=== PATIENT | male | born 1970 | race Caucasian/White ===

== ENCOUNTER 2018-11-30 08:55 | Observation (INO) | payer MEDICAID ==
[~2018-11-30] VITALS: Ht 175.3 cm; Wt 82.9 kg
[~2018-11-30 08:55] MED LIST: AMOX500C2 PO; CLIN300C10 PO; IBUP800T48 PO
[2018-11-30] MEDS ORDERED: ASPI-535 PO (10:17)
--- NOTE | 2018-11-30 11:27 | ERD ---
ER Documentation Chief Complaint Chief Complaint CHEST PAIN, LEFT ARM NUMBNESS, ONSET THIS AM HPI 48-year old male presents the emergency department complaining of chest pain. Patient was in his usual state of health until this morning at which time he developed a nonspecific left-sided pleuritic and stabbing type chest pain that r adiated to his left arm. It was associated with a nonspecific sense of a left arm numbness. There is no focal weakness or difficulty speaking or headache associated with this but a tingling type sensation in the left arm. He continued to have symptoms like this all day and then came to the emergency department for evaluation. Currently describes only a nonspecific chest pain which is worse when he takes a deep breath but is still persistent in the left upper extremity. ROS All systems reviewed and are negative except as per history of present illness. Medications Home Meds Reported Medications Aspirin Ec (Aspir 81) 81 Mg Tablet.dr, 81 MG PO DAILY, #30 TAB 11/30/18 Discontinued Scripts Amoxicillin* (Amoxicillin*) 500 Mg Cap, 500 MG PO TID for 10 Days, CAP Prov:ANTIONE ANDERSON MD 08/28/15 Ibuprofen* (Motrin*) 800 Mg Tab, 800 MG PO Q6H PRN for PAIN AND OR ELEVATED TEMP, #30 TAB Prov:ANTIONE ANDERSON MD 08/28/15 Clindamycin Hcl* (Clindamycin Hcl*) 300 Mg Capsule, 300 MG PO TID for 10 Days, CAP Prov:ANTIONE ANDERSON MD 08/28/15 Allergies Allergies: Coded Allergies: No Known Allergy (Unverified , 11/30/18) PMhx/Soc History of Surgery: Yes ([facility];Exploratory Laparoscopy; [facility]) Anesthesia Reaction: No Hx Neurological Disorder: No Hx Respiratory Disorders: No Hx Cardiac Disorders: No Hx Psychiatric Problems: No Hx Miscellaneous Medical Probl: Yes (ABDOMINAL MASS) Hx Alcohol Use: Yes Hx Substance Use: No Hx Tobacco Use: No Smoking Status: Never smoker FmHx Noncontributory for chief complaint Physical Exam Vitals Vital Signs Date Temp Pulse Resp B/P (MAP) Pulse Ox O2 O2 Flow FiO2 Time Delivery Rate 11/30/18 60 18 126/95 98 Room Air 11:19 (105) 11/30/18 97.8 75 17 166/86 98 08:58 (112) Physical Exam GENERAL: The patient is well developed and appropriate for usual state of health in no apparent distress HEENT: Pupils equal, round, and reactive to light. EOMI. There is no scleral icterus. NECK: C-spine is soft and supple, there is no meningismus. There is no cervical lymphadenopathy. LUNGS: Clear to auscultation bilaterally. There are no rales, wheezes or rhonchi. HEART: Regular rate and rhythm, no murmurs, clicks, rubs or gallops. ABDOMEN: Soft, non-tender, non-distended. There are bowel sounds in all four quadrants. No rebound or guarding. EXTREMITIES: There is no peripheral cyanosis or edema. No focal swelling or erythema. NEURO: The patient moves all four extremities with 5/5 strength. Cranial nerves II - XII are intact. Normal gait. Alert and oriented. Patient has nonspecific paresthesias in the left upper extremity in the distal aspect from the elbow down. SKIN: There is no apparent rash or petechiae. HEME/LYMPHATIC: There is no evidence of excessive bruising or lymphedema. PSYCHIATRIC: The patient does not appear anxious or depressed. Result Diagram: 11/30/1830 11/30/18 0913 Results 24 hrs Laboratory Tests Test 11/30/18 09:13 11/30/18 09:30 Sodium Level 141 mmol/L Potassium Level 4.4 mmol/L Chloride Level 106 mmol/L Carbon Dioxide Level 27 mmol/L Anion Gap 8 Blood Urea Nitrogen 14 mg/dl Creatinine 0.90 mg/dl Est Glomerular Filtrat Rate mL/min > 60 mL/min Glucose Level 88 mg/dl Calcium Level 9.6 mg/dl Total Bilirubin 0.5 mg/dl Direct Bilirubin 0.00 mg/dl Indirect Bilirubin 0.5 mg/dl Aspartate Amino Transf (AST/SGOT) 50 IU/L Alanine Aminotransferase (ALT/SGPT) 62 IU/L Alkaline Phosphatase 85 IU/L Troponin I < 0.012 ng/ml Total Protein 8.5 g/dl Albumin 4.6 g/dl Globulin 3.90 g/dl Albumin/Globulin Ratio 1.17 Triglycerides Level 340 mg/dl Cholesterol Level 228 mg/dl LDL Cholesterol, Calculated 124 mg/dl HDL Cholesterol 36 mg/dl Cholesterol/HDL Ratio 6.3 RATIO White Blood Count 7.4 10^3/ul Red Blood Count 5.30 10^6/ul Hemoglobin 15.4 g/dl Hematocrit 44.7 % Mean Corpuscular Volume 84.3 fl Mean Corpuscular Hemoglobin 29.1 pg Mean Corpuscular Hemoglobin Concent 34.5 g/dl Red Cell Distribution Width 12.5 % Platelet Count 240 10^3/UL Mean Platelet Volume 10.1 fl Immature Granulocytes % 0.400 % Neutrophils % 56.7 % Lymphocytes % 29.8 % Monocytes % 7.7 % Eosinophils % 4.7 % Basophils % 0.7 % Nucleated Red Blood Cells % 0.0 /100WBC Immature Granulocytes # 0.030 10^3/ul Neutrophils # 4.2 10^3/ul Lymphocytes # 2.2 10^3/ul Monocytes # 0.6 10^3/ul Eosinophils # 0.4 10^3/ul Basophils # 0.1 10^3/ul Nucleated Red Blood Cells # 0.0 10^3/ul Current Medications Medications Dose Sig/Sloane Start Time Status Last (Trade) Ordered Route PRN Stop Time Admin Dose Reason Admin Aspirin 325 mg ONCE ONCE 11/30/18 11/30/18 (Aspirin) PO 11:30 11/30/18 11:15 11:31 Procedures/MDM Patient was taken to a room, seen and evaluated. Comfort measures were initiated. Diagnostic tests were ordered and reviewed. 3 LEAD RHYTHM STRIP: Normal sinus rhythm without ectopy EK lead EKG reviewed by myself: Normal Sinus Rhythm Normal Benezett and intervals No ST elevation, depression, or T wave inversion Impression: Normal EKG RADIOLOGY: Reviewed with the radiologist CONSULTATION: Hospitalist was notified for admission REEVALUATION: Diagnostic tests were appreciated and discussed with the family and patient. Patient remained neurologically nonfocal at this time. After discussion with the patient, decision was made to admit for observation for further cardiac evaluation. MEDICAL DECISION MAKIN-year-old male presents the emergency department chest pain and nonspecific left arm tingling. Patient's been evaluated for both cardiac and neurologic standpoint. From a cardiac standpoint, his EKG is reassu ring as is his troponin. Patient has only minimal risk factors at this time, but with his ongoing symptoms and based on conversations with the patient, I am more comfortable admitting for serial troponins. From a neurologic standpoint, his neurologic evaluation does not make sense for a stroke and he has no other neurologic symptoms with a negative CT scan. Patient will be admitted for further observation at this time. Departure Diagnosis: Primary Impression: Chest pain Condition: Kade GAVIRIACHARLES Nov 30, 2018 11:27
[2018-11-30] MEDS ORDERED: ASPIRIN 325 MG TAB PO ONE (11:30)
--- NOTE | 2018-11-30 11:58 | HP ---
Date/Time of Note Date/Time of Note DATE: 11/30/18 TIME: 11:58 Assessment/Plan VTE Prophylaxis Pharmacological prophylaxis: LMWH Assessment/Plan Hospital Course 48-year-old male with no significant comorbidities other than obesity who came to the emergency room with chief complaint of new onset left forearm numbness and weakness. The also had new onset of pleuritic chest pain. The patient will be admitted to inpatient setting for further treatment and evaluation. 1. New-onset the left forearm numbness with weakness. -Brain CT scan negative. -Will obtain a brain MRI to rule out any acute stroke. -Obtain neurology consult. -Start the patient on aspirin and statins.- 2. Chest pain. -Most probably atypical in origin provided the pleuritic nature. -However, will rule out any ACS with serial troponins and 2D echocardiogram. 3. Dyslipidemia. -Start the patient on statins. -Dietary consult. 4. Obesity. -Dietary consult. Plan: The patient will be admitted to inpatient telemetry floor. The patient will be started on a low-cholesterol diet. The patient will be started on DVT prophylaxis. The patient will remain a full code. Activities will be as tolerated. The rest of the patient's management will be based on the clinical course, inputs from consultants, and the results of diagnostic studies. The patient was seen in collaboration with Dr. Perkins. Result Diagram: 11/30/1830 11/30/18 0913 Results 24hrs Laboratory Tests Test 11/30/18 09:13 11/30/18 09:30 Sodium Level 141 Potassium Level 4.4 Chloride Level 106 Carbon Dioxide Level 27 Anion Gap 8 Blood Urea Nitrogen 14 Creatinine 0.90 Est Glomerular Filtrat Rate mL/min > 60 Glucose Level 88 Calcium Level 9.6 Total Bilirubin 0.5 Direct Bilirubin 0.00 Indirect Bilirubin 0.5 Aspartate Amino Transf (AST/SGOT) 50 H Alanine Aminotransferase (ALT/SGPT) 62 Alkaline Phosphatase 85 Troponin I < 0.012 Total Protein 8.5 H Albumin 4.6 Globulin 3.90 H Albumin/Globulin Ratio 1.17 Triglycerides Level 340 H Cholesterol Level 228 H LDL Cholesterol, Calculated 124 HDL Cholesterol 36 Cholesterol/HDL Ratio 6.3 White Blood Count 7.4 # Red Blood Count 5.30 Hemoglobin 15.4 Hematocrit 44.7 Mean Corpuscular Volume 84.3 Mean Corpuscular Hemoglobin 29.1 Mean Corpuscular Hemoglobin Concent 34.5 Red Cell Distribution Width 12.5 Platelet Count 240 Mean Platelet Volume 10.1 Immature Granulocytes % 0.400 Neutrophils % 56.7 Lymphocytes % 29.8 Monocytes % 7.7 Eosinophils % 4.7 Basophils % 0.7 Nucleated Red Blood Cells % 0.0 Immature Granulocytes # 0.030 Neutrophils # 4.2 Lymphocytes # 2.2 Monocytes # 0.6 Eosinophils # 0.4 Basophils # 0.1 Nucleated Red Blood Cells # 0.0 HPI/ROS Admit Date/Time Admit Date/Time Hx of Present Illness This is a 48-year-old male who denies any significant past medical history. The patient started having left forearm numbness since 6 AM on 11/30/2018. The patient also had pleuritic chest pain upon deep inspiration. The patient verbalized that all the symptoms are new in onset. The patient denied any nausea, vomiting, or diaphoresis. The patient denied any dizziness.or visual disturbances. Patient denied any ataxia. The patient denied any injury to the left upper extremity. In the emergency room, the patient's 12-lead EKG was showing normal sinus rhythm. The patient's fasting lipid panel was showing significant dyslipidemia with elevated triglycerides and high total cholesterol. The patient was treated with a single dose of aspirin. The patient's brain CT scan was negative for any acute intracranial findings. ROS Constitutional: no complaints Eyes: no complaints ENT: no complaints Respiratory: no complaints Cardiovascular: chest pain, lightheadedness Gastrointestinal: no complaints Genitourinary: no complaints Musculoskeletal: no complaints Skin: erythema Neurologic: focal-weakness (LUE), other (Sensory loss in the left forearm.) Endocrine: no complaints Lymphatic: no complaints Psychological: anxiety Immunologic: no complaints PMH/Family/Social Past Medical History Medical History: no pertinent history Coded Allergies: No Known Allergy (Unverified , 11/30/18) Past Surgical History Past Surgical Hx: appendectomy Family History Significant Family History: no pertinent family hx Social History Lives at home with family. Works at [employer]. Alcohol Use: none Smoking Status: Never smoker Drug Use: none Exam/Review of Systems Vital Signs Vitals Vital Signs Date Temp Pulse Resp B/P (MAP) Pulse Ox O2 O2 Flow FiO2 Time Delivery Rate 11/30/18 60 18 126/95 98 Room Air 11:19 (105) 11/30/18 97.8 08:58 Exam Exam General: Adequately build 48 year-old male lying in bed in no apparent distress. HEENT: Normocephalic, atraumatic. Eyes: Anicteric sclerae, conjunctivae clear. ENT: Nasal septum midline, oral mucosa moist. Neck supple, no JVD noticed. Respiratory: Bilaterally clear breath sounds. No use of accessory muscles of respiration. No adventitious breath sounds. Cardiovascular: S1, S2 heard. Regular rate and rhythm. Abdomen: Soft, nontender, and nondistended. Bowel sounds positive in all 4 quadrants. Genitourinary: Deferred. Extremities: No cyanosis, no clubbing, no edema. Peripheral pulses palpable. Neurologic: The patient is awake, alert, and oriented. Left upper extremity weaker than the right upper extremity. Unable to feel soft touch on the left forearm. Skin: Normal skin turgor. Erythematous rashes on the face. Additional Comments Brain CT IMPRESSION: No acute intracranial pathology identified. CXR IMPRESSION: Unremarkable chest x-ray. 12-Lead EKG Normal sinus rhythm. MERVIN GALLEGOS NP Nov 30, 2018 11:58
[2018-11-30] MEDS ORDERED: ONDANSETRON 4 MG INJ IV PRN (13:00)
[2018-11-30] MEDS ORDERED: NACL 0.9% 3 ML SYG IV SCH (13:00)
[2018-11-30] MEDS ORDERED: ACETAMINOPHEN 325 MG TAB PO PRN (13:00)
[2018-11-30 17:09] VITALS: PULSE 66
[2018-11-30 17:10] VITALS: Ht 175.3 cm; Wt 82.9 kg
[2018-11-30 17:12] VITALS: BP 142/82; PULSE 59; RESP 18
[2018-11-30 20:00] VITALS: PULSE 71
[2018-11-30 20:17] VITALS: BP 126/76; PULSE 69; RESP 20
[2018-11-30] MEDS: ATORVASTATIN 40 MG TAB PO SCH (20:34)
[2018-12-01] VITALS (13 sets, daily range): BP systolic 114–133; BP diastolic 71–83; PULSE 58–83; RESP 16–20
[2018-12-01] MEDS: ASPIRIN (EC) 81 MG TAB PO SCH (08:02)
[2018-12-01] MEDS: ENOXAPARIN 40 MG/0.4 ML SYG SC SCH (08:06)
--- NOTE | 2018-12-01 13:34 | CONS ---
Assessment/Plan Assessment/Plan Hospital Course 48 M c/ Hx of HLD, and other comorbidities, who presents for evaluation of left arm weakness and numbness in the context of chest pain....for which neurology is consulted.. MRI brain is reassuringly without obvious acute intracranial pathology... Cervical spine pathology is, though, not yet excluded.. Complicated migraine is a Dx of exclusion... P: MRI C spine for further characterization NSAID prn headache PT/OT as necessary Continued medical management and supportive care per primary Will follow Consultation Date/Type/Reason Admit Date/Time Type of Consult Neurology Reason for Consultation L forearm numbness Requesting Provider: MERVIN GALLEGOS NP Date/Time of Note DATE: 12/01/18 TIME: 13:34 Hx of Present Illness 48 yo M with no significant PMH who presented to the ED for evaluation of L forearm numbness and chest pain. History was obtained from pt and chart review. The pt also endorsed headache and L arm weakness at the time. Denied dizziness, lethargy, confusion, vision or speech disturbances, gait instability. The pt also endorses a hx of headaches for which he takes motrin with pain relief. It is elsewhere noted: Hx of Present Illness This is a 48-year-old male who denies any significant past medical history. The patient started having left forearm numbness since 6 AM on 11/30/2018. The patient also had pleuritic chest pain upon deep inspiration. The patient verbalized that all the symptoms are new in onset. The patient denied any nausea, vomiting, or diaphoresis. The patient denied any dizziness.or visual disturbances. Patient denied any ataxia. The patient denied any injury to the left upper extremity. In the emergency room, the patient's 12-lead EKG was showing normal sinus rhythm. The patient's fasting lipid panel was showing significant dyslipidemia with elevated triglycerides and high total cholesterol. The patient was treated with a single dose of aspirin. The patient's brain CT scan was negative for any acute intracranial findings. negative unless noted otherwise in HPI Exam/Review of Systems Exam Vitals Vital Signs Date Temp Pulse Resp B/P (MAP) Pulse Ox O2 O2 Flow FiO2 Time Delivery Rate 12/01/18 98.7 74 18 126/79 98 Room Air 11:59 (95) Intake and Output 11/30/18 11/30/18 12/01/18 1414:59 22:59 06:59 IntakeIntake Total 400 ml BalanceBalance 400 ml Exam PE: Gen Appearance: No Apparent Distress HEENT: Normocephalic Cardiovascular: Regular rate Lungs: Clear bilaterally Abdomen: Soft Extremities: Dry NE: The patient was alert and oriented. Language was normal. Fund of knowledge was normal. Pupils were equal and reactive to light. There was no afferent pupillary defect. Visual sosa were normal. Funduscopic examination was limited. Extra-ocular movements were full. Ptosis was absent. There was no nystagmus. Facial sensation was normal. Face was symmetric with normal strength. Hearing was intact. Palate movements were normal. Neck strength was normal. There was normal tongue bulk and speed of movement. Tone was normal. Muscle bulk was normal. I did not see fasciculations. Arms and legs were mildly weak on the L. Vibration sensation and sensation to light touch was diminished in the L hand. Temperature and pinprick sensation was normal. Rapid alternating movements were normal. There was no dysmetria. There was no intention tremor. Gait was deferred due to bedrest. Arm and leg reflexes were 2+ and symmetric. Portillo's sign was absent. Plantar responses were flexor. Results Result Diagram: 12/01/18 0329 12/01/18 0329 Results 24hrs Laboratory Tests Test 11/30/18 17:45 11/30/18 22:00 11/30/18 23:10 12/01/18 03:29 Creatine Kinase 77 84 81 Creatine Kinase Index 0.5 0.4 0.4 Creatinine Kinase MB 0.36 0.30 0.36 (Mass) Troponin I < 0.012 < 0.012 < 0.012 Urine Opiates Screen Negative Urine Barbiturates Negative Urine Amphetamines Negative Screen Urine Benzodiazepines Negative Screen Urine Cocaine Screen Negative Urine Cannabinoids Negative White Blood Count 7.1 Red Blood Count 5.11 Hemoglobin 15.2 Hematocrit 42.9 Mean Corpuscular Volume 84.0 Mean Corpuscular 29.7 Hemoglobin Mean Corpuscular 35.4 Hemoglobin Concent Red Cell Distribution 12.5 Width Platelet Count 239 Mean Platelet Volume 10.4 Immature Granulocytes % 0.600 H Neutrophils % 51.0 Lymphocytes % 34.3 Monocytes % 7.2 Eosinophils % 5.9 Basophils % 1.0 Nucleated Red Blood 0.0 Cells % Immature Granulocytes # 0.040 H Neutrophils # 3.6 Lymphocytes # 2.4 Monocytes # 0.5 Eosinophils # 0.4 Basophils # 0.1 Nucleated Red Blood 0.0 Cells # Sodium Level 139 Potassium Level 4.1 Chloride Level 105 Carbon Dioxide Level 26 Anion Gap 8 Blood Urea Nitrogen 16 Creatinine 0.76 Est Glomerular Filtrat > 60 Rate mL/min Glucose Level 88 Calcium Level 9.5 Phosphorus Level 4.9 Magnesium Level 2.1 Medications Medication Current Medications IV Flush (NS 3 ml) 3 ml PER PROTOCOL IV ; Start 11/30/18 at 13:00 Ondansetron HCl (Zofran Inj) 4 mg Q6H PRN IV NAUSEA/VOMITING; Start 11/30/18 at 13:00 Acetaminophen (Tylenol Tab) 650 mg Q6H PRN PO .PAIN 1-3 OR TEMP Last administered on 11/30/18at 19:42; Admin Dose 650 MG; Start 11/30/18 at 13:00 Enoxaparin Sodium (Lovenox) 40 mg DAILY SC Last administered on 12/01/18at 08:06; Admin Dose 40 MG; Start 12/01/18 at 09:00 Aspirin (Halfprin) 81 mg DAILY PO Last administered on 12/01/18at 08:02; Admin Dose 81 MG; Start 12/01/18 at 09:00 Atorvastatin Calcium (Lipitor) 40 mg HS PO Last administered on 11/30/18at 20:34; Admin Dose 40 MG; Start 11/30/18 at 21:00 Past Medical History reviewed Medical History: no pertinent history Home Meds Reported Medications Aspirin Ec (Aspir 81) 81 Mg Tablet.dr, 81 MG PO DAILY, #30 TAB 11/30/18 Discontinued Scripts Amoxicillin* (Amoxicillin*) 500 Mg Cap, 500 MG PO TID for 10 Days, CAP Prov:ANTIONE ANDERSON MD 08/28/15 Ibuprofen* (Motrin*) 800 Mg Tab, 800 MG PO Q6H PRN for PAIN AND OR ELEVATED TEMP, #30 TAB Prov:ANTIONE ANDERSON MD 08/28/15 Clindamycin Hcl* (Clindamycin Hcl*) 300 Mg Capsule, 300 MG PO TID for 10 Days, CAP Prov:ANTIONE ANDERSON MD 08/28/15 Medications Current Medications IV Flush (NS 3 ml) 3 ml PER PROTOCOL IV ; Start 11/30/18 at 13:00 Ondansetron HCl (Zofran Inj) 4 mg Q6H PRN IV NAUSEA/VOMITING; Start 11/30/18 at 13:00 Acetaminophen (Tylenol Tab) 650 mg Q6H PRN PO .PAIN 1-3 OR TEMP Last administered on 11/30/18at 19:42; Admin Dose 650 MG; Start 11/30/18 at 13:00 Enoxaparin Sodium (Lovenox) 40 mg DAILY SC Last administered on 12/01/18at 08:06; Admin Dose 40 MG; Start 12/01/18 at 09:00 Aspirin (Halfprin) 81 mg DAILY PO Last administered on 12/01/18at 08:02; Admin Dose 81 MG; Start 12/01/18 at 09:00 Atorvastatin Calcium (Lipitor) 40 mg HS PO Last administered on 11/30/18at 20:34; Admin Dose 40 MG; Start 11/30/18 at 21:00 Allergies: Coded Allergies: No Known Allergy (Unverified , 11/30/18) Past Surgical History reviewed Past Surgical Hx: appendectomy Social History reviewed Alcohol Use: none Smoking Status: Never smoker Drug Use: none MIKAYLA MARTINEZ NP Dec 01, 2018 13:34 GWENDOLYN TODD Dec 01, 2018 15:36
--- NOTE | 2018-12-01 13:53 | PN ---
Date/Time of Note Date/Time of Note DATE: 12/01/18 TIME: 13:50 Assessment/Plan VTE Prophylaxis Risk score (from Nsg)>0 risk: 1 SCD applied (from Nsg): Yes Pharmacological prophylaxis: LMWH Lines/Catheters IV Catheter Type (from Nrsg): Peripheral IV Assessment/Plan Hospital Course SUBJECTIVE: Denies any chest pain. Left forearm numbness weakness now focalized to left combined left index finger. OBJECTIVE: Physical Exam General: Adequately build 48 year-old male lying in bed in no apparent distress. HEENT: Normocephalic, atraumatic. Eyes: Anicteric sclerae, conjunctivae clear. ENT: Nasal septum midline, oral mucosa moist. Neck supple, no JVD noticed. Respiratory: Bilaterally clear breath sounds. No use of accessory muscles of respiration. No adventitious breath sounds. Cardiovascular: S1, S2 heard. Regular rate and rhythm. Abdomen: Soft, nontender, and nondistended. Bowel sounds positive in all 4 quadrants. Genitourinary: Deferred. Extremities: No cyanosis, no clubbing, no edema. Peripheral pulses palpable. Neurologic: The patient is awake, alert, and oriented. Unable to feel soft touch on the left thumb and index finger. Skin: Normal skin turgor. Labs & Vitals per chart ASSESSMENT & PLAN 48-year-old male with no significant comorbidities other than obesity who came to the emergency room with chief complaint of new onset left forearm numbness and weakness. The also had new onset of pleuritic chest pain. The patient will be admitted to inpatient setting for further treatment and evaluation. 1. New-onset the left forearm numbness with weakness. -Brain CT scan negative. -Brain MRI negative for any stroke. -Obtain neurology consult. -Continue aspirin and statins. -Occupational Therapy consult. 2. Chest pain. -Most probably atypical in origin provided the pleuritic nature. -Serial troponins negative. 3. Dyslipidemia. -Continue the patient on statins. -Dietary consult. 4. Obesity. -Dietary consult. 5. Fluids, electrolytes, and nutrition. -Low-cholesterol diet. 6. Prophylaxis. -Subcutaneous Lovenox. 7. Plan. -Continue inpatient monitoring. -Await further neurology input. The patient was seen in collaboration with Dr. Perkins. Result Diagram: 12/01/18 0329 12/01/18 0329 Results 24hrs Laboratory Tests Test 11/30/18 17:45 11/30/18 22:00 11/30/18 23:10 12/01/18 03:29 Creatine Kinase 77 84 81 Creatine Kinase Index 0.5 0.4 0.4 Creatinine Kinase MB 0.36 0.30 0.36 (Mass) Troponin I < 0.012 < 0.012 < 0.012 Urine Opiates Screen Negative Urine Barbiturates Negative Urine Amphetamines Negative Screen Urine Benzodiazepines Negative Screen Urine Cocaine Screen Negative Urine Cannabinoids Negative White Blood Count 7.1 Red Blood Count 5.11 Hemoglobin 15.2 Hematocrit 42.9 Mean Corpuscular Volume 84.0 Mean Corpuscular 29.7 Hemoglobin Mean Corpuscular 35.4 Hemoglobin Concent Red Cell Distribution 12.5 Width Platelet Count 239 Mean Platelet Volume 10.4 Immature Granulocytes % 0.600 H Neutrophils % 51.0 Lymphocytes % 34.3 Monocytes % 7.2 Eosinophils % 5.9 Basophils % 1.0 Nucleated Red Blood 0.0 Cells % Immature Granulocytes # 0.040 H Neutrophils # 3.6 Lymphocytes # 2.4 Monocytes # 0.5 Eosinophils # 0.4 Basophils # 0.1 Nucleated Red Blood 0.0 Cells # Sodium Level 139 Potassium Level 4.1 Chloride Level 105 Carbon Dioxide Level 26 Anion Gap 8 Blood Urea Nitrogen 16 Creatinine 0.76 Est Glomerular Filtrat > 60 Rate mL/min Glucose Level 88 Calcium Level 9.5 Phosphorus Level 4.9 Magnesium Level 2.1 Exam/Review of Systems Exam Vitals Vital Signs Date Temp Pulse Resp B/P (MAP) Pulse Ox O2 O2 Flow FiO2 Time Delivery Rate 12/01/18 98.7 74 18 126/79 98 Room Air 11:59 (95) Intake and Output 11/30/18 11/30/18 12/01/18 1515:00 23:00 07:00 IntakeIntake Total 400 ml BalanceBalance 400 ml Results Results 24hrs Laboratory Tests Test 11/30/18 17:45 11/30/18 22:00 11/30/18 23:10 12/01/18 03:29 Creatine Kinase 77 84 81 Creatine Kinase Index 0.5 0.4 0.4 Creatinine Kinase MB 0.36 0.30 0.36 (Mass) Troponin I < 0.012 < 0.012 < 0.012 Urine Opiates Screen Negative Urine Barbiturates Negative Urine Amphetamines Negative Screen Urine Benzodiazepines Negative Screen Urine Cocaine Screen Negative Urine Cannabinoids Negative White Blood Count 7.1 Red Blood Count 5.11 Hemoglobin 15.2 Hematocrit 42.9 Mean Corpuscular Volume 84.0 Mean Corpuscular 29.7 Hemoglobin Mean Corpuscular 35.4 Hemoglobin Concent Red Cell Distribution 12.5 Width Platelet Count 239 Mean Platelet Volume 10.4 Immature Granulocytes % 0.600 H Neutrophils % 51.0 Lymphocytes % 34.3 Monocytes % 7.2 Eosinophils % 5.9 Basophils % 1.0 Nucleated Red Blood 0.0 Cells % Immature Granulocytes # 0.040 H Neutrophils # 3.6 Lymphocytes # 2.4 Monocytes # 0.5 Eosinophils # 0.4 Basophils # 0.1 Nucleated Red Blood 0.0 Cells # Sodium Level 139 Potassium Level 4.1 Chloride Level 105 Carbon Dioxide Level 26 Anion Gap 8 Blood Urea Nitrogen 16 Creatinine 0.76 Est Glomerular Filtrat > 60 Rate mL/min Glucose Level 88 Calcium Level 9.5 Phosphorus Level 4.9 Magnesium Level 2.1 Medications Medication Current Medications IV Flush (NS 3 ml) 3 ml PER PROTOCOL IV ; Start 11/30/18 at 13:00 Ondansetron HCl (Zofran Inj) 4 mg Q6H PRN IV NAUSEA/VOMITING; Start 11/30/18 at 13:00 Acetaminophen (Tylenol Tab) 650 mg Q6H PRN PO .PAIN 1-3 OR TEMP Last administe red on 11/30/18at 19:42; Admin Dose 650 MG; Start 11/30/18 at 13:00 Enoxaparin Sodium (Lovenox) 40 mg DAILY SC Last administered on 12/01/18 08:06; Admin Dose 40 MG; Start 12/01/18 at 09:00 Aspirin (Halfprin) 81 mg DAILY PO Last administered on 12/01/18 08:02; Admin Dose 81 MG; Start 12/01/18 at 09:00 Atorvastatin Calcium (Lipitor) 40 mg HS PO Last administered on 11/30/18 20:34; Admin Dose 40 MG; Start 11/30/18 at 21:00 MERVIN GALLEGOS NP Dec 01, 2018 13:53
--- NOTE | 2018-12-01 17:41 | RADRPT ---
Echocardiogram Report Patient Name: RUBEN RICHARDSONPatient ID: [id number] : 1970 (48y 8m)Study Date: 12/01/2018 9:23:07 AM Gender: Leah #: [id number] Tech: Tima Comer [facility] Location: 6[address] Ref.Physician: MERVIN GALLEGOS Height(Cm): BSA: Weight(Kg): Quality: AdequateAccount #: Procedures: Echocardiographic Report: Transthoracic echocardiogram with complete 2D, M-Mode, and doppler examination. Indications: Chest Pain. Measurements: 2D/M Mode Doppler Measurement Value Normal Range Measurement Value Normal Range LVIDd 2D 4.4 [ 4.2 - 5.8 ] cm AV Peak Nehemias 1.3 [ 100.0 - 170.0 ] cm/sec LVIDs 2D 3.0 [ 2.5 - 4.0 ] cm AV Peak PG 7.0 [ 2.0 - 9.0 ] mmHg LVPWd 2D 1.1 [ 0.6 - 1.0 ] cm LVOT Peak Nehemias 1.1 [ 70.0 - 110.0 ] cm/sec IVSd 2D 1.3 [ 0.6 - 1.0 ] cm LVOT Peak PG 5.0 [ 2.0 - 6.0 ] mmHg AoR Diam 2D 4.0 [ 2.6 - 3.4 ] cm MV E Peak Nehemias 0.7 [ 60.0 - 130.0 ] cm/sec EDV 2D 86.3 [ 62.0 - 150.0 ] ml MV A Peak Nehemias 0.8 [ 100.0 - 120.0 ] cm/sec ESV 2D 36.2 [ 21.0 - 61.0 ] ml MV E/A 0.9 [ 0.8 - 1.5 ] ratio EF 2D 58.1 [ 52.0 - 72.0 ] percent MV Decel Time 264 [ 104 - 258 ] msec LA Dimen 2D 3.1 [ 3.0 - 4.0 ] cm Lat E` Nehemias 0.1 [ 10.0 - 15.0 ] cm/sec Lateral E/E` 6.8 [ 1.0 - 2.0 ] ratio Med E` Nehemias 0.1 cm/sec MV E/A 0.9 [ 0.8 - 1.5 ] ratio TR Peak Nehemias 2.3 [ 100.0 - 280.0 ] cm/sec TR Peak PG 22.0 mmHg RVSP 25.0 [ 10.0 - 36.0 ] mmHg Findings: Left Ventricle: Normal left ventricular systolic function. Normal left ventricular cavity size. Sigmoid septum. Ejection fraction is visually estimated at 60 %. Tissue Doppler/Mitral Doppler indices are consistent with impaired relaxation (Stage I diastolic dysfunction). Right Ventricle: Normal right ventricular size. Normal right ventricular systolic function. Left Atrium: The left atrium is normal in size. Right Atrium: The right atrium is normal in size. Mitral Valve: Mild mitral leaflet calcification. Mild mitral annular calcification. Trace mitral regurgitation. Aortic Valve: No significant aortic stenosis or insufficiency. Aortic cusps appear mildly calcified. Mild aortic valve regurgitation. Tricuspid Valve: Normal appearance of the tricuspid valve. Estimated peak PA systolic pressure 25 mmHg. There is trace tricuspid regurgitation. Pericardium: Normal pericardium with no significant pericardial effusion. Aorta: Sinotubular junction is dilated. Sinotubular junction: 4.00 cm. IVC: Normal size and normal respiratory collapse consistent with normal right atrial pressure. Conclusions: Normal left ventricular systolic function. Normal left ventricular cavity size. Sigmoid septum. Ejection fraction is visually estimated at 60 %. Tissue Doppler/Mitral Doppler indices are consistent with impaired relaxation (Stage I diastolic dysfunction). Mild mitral leaflet calcification. Mild mitral annular calcification. Trace mitral regurgitation. No significant aortic stenosis or insufficiency. Aortic cusps appear mildly calcified. Mild aortic valve regurgitation. Normal appearance of the tricuspid valve. Estimated peak PA systolic pressure 25 mmHg. There is trace tricuspid regurgitation. Electronically Signed By: Oswaldo Donald 2018-12-01 17:41:30 [facility]
[2018-12-01] MEDS: ATORVASTATIN 40 MG TAB PO SCH (20:22)
[2018-12-02] VITALS (9 sets, daily range): BP systolic 107–122; BP diastolic 67–76; PULSE 62–102; RESP 16–20
[2018-12-02] MEDS: ASPIRIN (EC) 81 MG TAB PO SCH (07:42)
[2018-12-02] MEDS: ENOXAPARIN 40 MG/0.4 ML SYG SC SCH (07:46)
--- NOTE | 2018-12-02 13:48 | CONS ---
Assessment/Plan Assessment/Plan Hospital Course 48 M c/ Hx of HLD, and other comorbidities, who presents for evaluation of left arm weakness and numbness in the context of chest pain....for which neurology is consulted.. Perhaps a complicated migraine. MRI brain is reassuringly without obvious acute intracranial pathology... MRI C spine is reassuringly without acute pathology. P: NSAID prn headache PT/OT as necessary Continued medical management and supportive care per primary Will follow Consultation Date/Type/Reason Admit Date/Time Nov 30, 2018 at 11:24 Type of Consult Neurology Reason for Consultation L forearm numbness Requesting Provider: MERVIN GALLEGOS NP Date/Time of Note DATE: 12/02/18 TIME: 13:47 24 HR Interval Summary Free Text/Dictation Continues acute care. S/p MRI C spine. Pt states that his sx have almost entirely resolved. Exam Vital Signs Vitals Vital Signs Date Temp Pulse Resp B/P (MAP) Pulse Ox O2 O2 Flow FiO2 Time Delivery Rate 12/02/18 102 12:49 12/02/18 97.4 17 117/70 98 Room Air 11:20 (86) Intake and Output 12/01/18 12/01/18 12/02/18 1414:59 22:59 06:59 IntakeIntake Total 2280 ml 600 ml BalanceBalance 2280 ml 600 ml Exam PE: Gen Appearance: No Apparent Distress HEENT: Normocephalic Cardiovascular: Regular rate Lungs: Clear bilaterally Abdomen: Soft Extremities: Dry NE: The patient was alert and oriented. Language was normal. Fund of knowledge was normal. Pupils were equal and reactive to light. There was no afferent pupillary defect. Visual sosa were normal. Funduscopic examination was limited. Extra-ocular movements were full. Ptosis was absent. There was no nystagmus. Facial sensation was normal. Face was symmetric with normal strength. Hearing was intact. Palate movements were normal. Neck strength was normal. There was normal tongue bulk and speed of movement. Tone was normal. Muscle bulk was normal. I did not see fasciculations. Arms and legs were mildly weak on the L. Vibration sensation and sensation to light touch was diminished in the L hand. Temperature and pinprick sensation was normal. Rapid alternating movements were normal. There was no dysmetria. There was no intention tremor. Gait was deferred due to bedrest. Arm and leg reflexes were 2+ and symmetric. Portillo's sign was absent. Plantar responses were flexor. MIKAYLA MARTINEZ NP Dec 02, 2018 13:48 GWENDOLYN TODD Dec 02, 2018 15:20
[2018-12-02] MEDS ORDERED: ATOR40TA68 PO (14:30)
--- NOTE | 2018-12-02 14:57 | PDOCDIS ---
Discharge Instructions CONDITION [id number] Patient Condition: [id number] Stable HOME CARE INSTRUCTIONS: [id number] Diet Instructions: [id number] Low Fat /Cholesterol OTHER ORDERS: Other Orders: 1. Take a low cholesterol diet. 2. Continue aspirin. Start taking Lipitor. 3. Resume activities as tolerated. 4. Please follow-up with your primary care physician in 2 weeks. 5. Please go to the nearest emergency room if you have any sudden onset of focal weakness, speech disturbances, chest pain, or any other unusual signs/symptoms. MERVIN GALLEGOS NP Dec 02, 2018 14:54
[2018-12-02] MEDS ORDERED: Work Note (15:08)
--- NOTE | 2018-12-02 16:45 | DS ---
Date/Time of Note Date/Time of Note DATE: 12/02/18 TIME: 16:45 Discharge Summary Admission/Discharge Info Admit Date/Time Nov 30, 2018 at 11:24 Discharge Date/Time Hx of Present Illness This is a 48-year-old male who denies any significant past medical history. The patient started having left forearm numbness since 6 AM on 11/30/2018. The patient also had pleuritic chest pain upon deep inspiration. The patient verbalized that all the symptoms are new in onset. The patient denied any nausea, vomiting, or diaphoresis. The patient denied any dizziness.or visual disturbances. Patient denied any ataxia. The patient denied any injury to the left upper extremity. In the emergency room, the patient's 12-lead EKG was showing normal sinus rhythm. The patient's fasting lipid panel was showing significant dyslipidemia with elevated triglycerides and high total cholesterol. The patient was treated with a single dose of aspirin. The patient's brain CT scan was negative for any acute intracranial findings. Hospital Course SUBJECTIVE: Denies any chest pain. Left forearm numbness weakness now focalized to left combined left index finger. OBJECTIVE: Physical Exam General: Adequately build 48 year-old male lying in bed in no apparent distress. HEENT: Normocephalic, atraumatic. Eyes: Anicteric sclerae, conjunctivae clear. ENT: Nasal septum midline, oral mucosa moist. Neck supple, no JVD noticed. Respiratory: Bilaterally clear breath sounds. No use of accessory muscles of respiration. No adventitious breath sounds. Cardiovascular: S1, S2 heard. Regular rate and rhythm. Abdomen: Soft, nontender, and nondistended. Bowel sounds positive in all 4 quadrants. Genitourinary: Deferred. Extremities: No cyanosis, no clubbing, no edema. Peripheral pulses palpable. Neurologic: The patient is awake, alert, and oriented. Unable to feel soft touch on the left thumb and index finger. Skin: Normal skin turgor. Labs & Vitals per chart ASSESSMENT & PLAN 48-year-old male with no significant comorbidities other than obesity who came to the emergency room with chief complaint of new onset left forearm numbness and weakness. The also had new onset of pleuritic chest pain. The patient will be admitted to inpatient setting for further treatment and evaluation. 1. New-onset the left forearm numbness with weakness. -Brain CT scan negative. -Brain MRI negative for any stroke. -Obtain neurology consult. -Continue aspirin and statins. -Occupational Therapy consult. 2. Chest pain. -Most probably atypical in origin provided the pleuritic nature. -Serial troponins negative. 3. Dyslipidemia. -Continue the patient on statins. -Dietary consult. 4. Obesity. -Dietary consult. 5. Fluids, electrolytes, and nutrition. -Low-cholesterol diet. 6. Prophylaxis. -Subcutaneous Lovenox. 7. Plan. -Continue inpatient monitoring. -Await further neurology input. The patient was seen in collaboration with Dr. Perkins. [place] Meds Active Scripts [Work Note] No Conflict Check This is to certify that the patient was admitted to [facility] from 11/30/18 to 12/02/18. He can return back to work on 12/05/2018 with no restrictions. Prov:MERVIN GALLEGOS NP 12/02/18 Atorvastatin* (Atorvastatin*) 40 Mg Tablet, 40 MG PO HS, #30 TAB Prov:MERVIN GALLEGOS NP 12/02/18 Reported Medications Aspirin Ec (Aspir 81) 81 Mg Tablet.dr, 81 MG PO DAILY, #30 TAB 11/30/18 Discontinued Scripts Amoxicillin* (Amoxicillin*) 500 Mg Cap, 500 MG PO TID for 10 Days, CAP Prov:ANTIONE ANDERSON MD 08/28/15 Ibuprofen* (Motrin*) 800 Mg Tab, 800 MG PO Q6H PRN for PAIN AND OR ELEVATED TEMP, #30 TAB Prov:ANTIONE ANDERSON MD 08/28/15 Clindamycin Hcl* (Clindamycin Hcl*) 300 Mg Capsule, 300 MG PO TID for 10 Days, CAP Prov:ANTIONE ANDERSON MD 08/28/15 Primary Care Provider [facility] MERVIN GALLEGOS NP Dec 02, 2018 16:45
--- NOTE | 2018-12-02 17:43 | DS ---
Date/Time of Note Date/Time of Note DATE: 12/02/18 TIME: 17:39 Discharge Summary Admission/Discharge Info Admit Date/Time Nov 30, 2018 at 11:24 Discharge Date/Time Discharge Diagnosis 1. Reversible left forearm numbness with weakness. ? Migraine hemiplegia. 2. Atypical chest pain. 3. Dyslipidemia. 4. Obesity. Patient Condition: Stable Consults 1. Dona Plasencia MD, Neurology. Procedures Brain MRI IMPRESSION: 1. No acute intracranial hemorrhage, infarction or mass. 2. A few small foci of white matter signal abnormality, which are nonspecific in appearance and may reflect complicated migraines, early microvascular ischemic disease, sequela from prior traumatic or inflammatory insults. Cervical Spine MRI IMPRESSION: 1. No acute osseous or ligamentous injury. 2. The central canal and neural foramina are adequately patent at all levels. 3. Unremarkable cervical spinal cord. 4. Minimal cervical spondylosis/degenerative enthesopathy more evident at T4 C5. 2D Echocardiogram Conclusions: Normal left ventricular systolic function. Normal left ventricular cavity size. Sigmoid septum. Ejection fraction is visually estimated at 60 %. Tissue Doppler/Mitral Doppler indices are consistent with impaired relaxation (Stage I diastolic dysfunction). Mild mitral leaflet calcification. Mild mitral annular calcification. Trace mitral regurgitation. No significant aortic stenosis or insufficiency. Aortic cusps appear mildly calcified. Mild aortic valve regurgitation. Normal appearance of the tricuspid valve. Estimated peak PA systolic pressure 25 mmHg. There is trace tricuspid regurgitation. Hx of Present Illness This is a 48-year-old male who denied any significant past medical history. The patient started having left forearm numbness since 6 AM on 11/30/2018. The patient also had pleuritic chest pain upon deep inspiration. The patient verbalized that all the symptoms are new in onset. The patient denied any nausea, vomiting, or diaphoresis. The patient denied any dizziness.or visual disturbances. Patient denied any ataxia. The patient denied any injury to the left upper extremity. In the emergency room, the patient's 12-lead EKG was showing normal sinus rhythm. The patient's fasting lipid panel was showing significant dyslipidemia with elevated triglycerides and high total cholesterol. The patient was treated with a single dose of aspirin. The patient's brain CT scan was negative for any acute intracranial findings. Hospital Course The patient was admitted to inpatient setting. The patient's presenting symptoms were extensively evaluated. The patient's brain CT scan was negative. The patient's brain MRI was negative for any stroke. However the patient's brain MRI showed a few small foci of white matter signal abnormality which are nonspecific in appearance and may reflect complicated migraines. Patient's symptomatology improved with time to almost no weakness or numbness of the left upper extremity. The patient's symptomatology was consistent with a migraine hemiplegia although the patient denied any significant headache. The patient was ruled out for any underlying ACS. The patient's chest pain was not nonspecific and pleuritic in nature. The patient's 2D echocardiogram was showing preserved left ventricular ejection fraction. The patient's serial troponins remained negative. The patient was also noticed to be obese. The patient was advised on weight reduction. The patient's hemoglobin A1c was within normal limits. The patient was noticed to have significant dyslipidemia with elevated triglycerides, elevated total cholesterol, and suboptimal LDL. The patient was started on statins. The patient was continued on aspirin. Although, the patient had elevated blood pressure in the emergency room, the patient's blood pressure remained stable afterwards during hospitalization. The patient is stable to be discharged home. The patient's symptomatology is almost completely resolved. An occupational therapy consult was ordered for evaluation of left upper extremity weakness. However, no occupational therapy saw the patient in a timely fashion. Discharge Instructions 1. Take a low cholesterol diet. 2. Continue aspirin. Start taking Lipitor. 3. Resume activities as tolerated. 4. Please follow-up with your primary care physician in 2 weeks. 5. Please go to the nearest emergency room if you have any sudden onset of focal weakness, speech disturbances, chest pain, or any other unusual signs/symptoms. The patient verbalized understanding of his discharge instructions. At this time I would like to thank all the consultants for seeing the patient and providing clinical recommendations. The patient was seen in collaboration with Dr. Perkins. Home Meds Active Scripts [Work Note] No Conflict Check This is to certify that the patient was admitted to [facility] from 11/30/18 to 12/02/18. He can return back to work on 12/05/2018 with no restrictions. Prov:MERVIN GALLEGOS [employer] 12/02/18 Atorvastatin* (Atorvastatin*) 40 Mg Tablet, 40 MG PO HS, #30 TAB Prov:MERVIN GALLEGOS NP 12/02/18 Reported Medications Aspirin Ec (Aspir 81) 81 Mg Tablet., 81 MG PO DAILY, #30 TAB 11/30/18 Discontinued Scripts Amoxicillin* (Amoxicillin*) 500 Mg Cap, 500 MG PO TID for 10 Days, CAP Prov:ANTIONE ANDERSON MD 08/28/15 Ibuprofen* (Motrin*) 800 Mg Tab, 800 MG PO Q6H PRN for PAIN AND OR ELEVATED TEMP, #30 TAB Prov:ANTIONE ANDERSON MD 08/28/15 Clindamycin Hcl* (Clindamycin Hcl*) 300 Mg Capsule, 300 MG PO TID for 10 Days, CAP Prov:ANTIONE ANDERSON MD 08/28/15 Follow-up Plan Patient to follow-up with outpatient primary care physician. Primary Care Provider Neyda Peck Time spent on discharge: > 30 minutes MERVIN GALLEGOS NP Dec 02, 2018 17:43
== END 2018-12-02 17:30 | disposition home or self-care (01) ==
LOC: E/R 08:55 → 6WM 11:24
PROVIDERS: ADMIT Internal Medicine; ATTEND Internal Medicine
DX: R20.0 Anesthesia of skin (principal); R53.1 Weakness; R07.89 Other chest pain; E78.5 Hyperlipidemia, unspecified; E66.9 Obesity, unspecified; Z68.27 Body mass index [BMI] 27.0-27.9, adult; Z79.82 Long term (current) use of aspirin
CPT/HCPCS: 70450; 70551; 71045; 72141; 80048; 80053; 80061; 80307; 81003; 82550; 82553; 83036; 83735; 84100; 84439; 84443; 84484; 85025; 85651; 86140; 93005; 93306; J1650; Z7500; Z7502; Z7610; G0378